=== PATIENT | male | born 1975 | race African-American/Black ===

== ENCOUNTER 2017-04-02 16:05 | Emergency (ER) | payer MEDICAID ==
[~2017-04-02] VITALS: Ht 185.4 cm; Wt 91.4 kg
[2017-04-02 16:12] VITALS: BP 152/84
[2017-04-02] MEDS ORDERED: AZITHROMYCIN 500 MG TABLET PO ONE (16:30)
[2017-04-02] MEDS ORDERED: metroNIDAZOLE 500 MG TABLET PO ONE (16:30)
[2017-04-02] MEDS ORDERED: CEFTRIAXONE 250 MG IM ONE (16:30)
[2017-04-02] MEDS ORDERED: AZITHROMYCIN 500 MG TABLET ONE (16:42)
[2017-04-02] MEDS ORDERED: CEFTRIAXONE 250 MG ONE (16:42)
[2017-04-02] MEDS ORDERED: LIDOCAINE-MPF 2% ,5ML ONE (16:42)
[2017-04-02] MEDS ORDERED: metroNIDAZOLE 500 MG TABLET ONE (16:46)
== END 2017-04-02 17:22 | disposition home or self-care (01) ==
LOC: ED 17:17
DX: Z20.2 Contact with and (suspected) exposure to infections with a predominantly sexual mode of transmission (principal)
CPT/HCPCS: 87491; 87591; 96372; 99284; J0696

== ENCOUNTER 2018-05-25 18:30 | Emergency (ER) | payer MEDICAID ==
[~2018-05-25] VITALS: Ht 182.9 cm; Wt 85.9 kg
[2018-05-25 18:38] VITALS: BP 143/93
== END 2018-05-25 19:34 | disposition home or self-care (01) ==
LOC: ED 19:28
DX: L03.116 Cellulitis of left lower limb (principal)
CPT/HCPCS: 99283

== ENCOUNTER 2020-06-11 17:42 | Emergency (ER) | payer MEDICAID ==
[~2020-06-11] VITALS: Ht 182.9 cm; Wt 82.5 kg
[2020-06-11] MEDS ORDERED: SODIUM CHLORIDE FLUSH 10ML SYR IVF ONE (19:00)
[2020-06-11 19:01] LABS: MICROSCOPIC AUTO
[2020-06-11 19:09] LABS: BASOPHILS % (AUTO) 0 % (0-1); EOSINOPHILS # (AUTO) 0.03 x10^3/uL (0-0.4); EOSINOPHILS % (AUTO) 1 % (1-7); LYMPHOCYTES % (AUTO) 11 % (22-44); MD NO; MEAN CORPUSCULAR HEMOGLOBIN 31.8 pg (27.5-34.5); MEAN CORPUSCULAR HGB CONC 33.8 g/dL (33.2-36.2); MEAN CORPUSCULAR VOLUME 94.1 fL (81-97); MEAN PLATELET VOLUME 7.6 fL (7.4-10.4); MONOCYTES # (AUTO) 0.58 x10^3/uL (0.2-0.8); MONOCYTES % (AUTO) 8 % (2-9); NEUTROPHILS # (AUTO) 6.16 x10^3/uL (1.8-6.8); NEUTROPHILS % (AUTO) 81 % (42-75); PLATELET COUNT 287 x10^3/uL (130-400); RED BLOOD COUNT 5.45 x10^6/uL (4.38-5.82); RED CELL DISTRIBUTION WIDTH 14.1 % (9.4-14.8)
[2020-06-11 19:20] LABS: ALBUMIN 3.8 g/dL (3.4-5.0); ANION GAP 4 mmol/L (5-15); CALCIUM 9.1 mg/dL (8.5-10.1); CHLORIDE 108 mmol/L (98-107)
[2020-06-11 19:24] LABS: ALANINE AMINOTRANSFERASE 34 U/L (12-78); ALKALINE PHOSPHATASE 74 U/L (45-117); BILIRUBIN,TOTAL 2.1 mg/dL (0.2-1.0); TOTAL PROTEIN 8.1 g/dL (6.4-8.2)
--- NOTE | 2020-06-11 19:41 | NUR ---
PT TO ROOM FROM LOBBY
--- NOTE | 2020-06-11 20:35 | NUR ---
Pt provided with water, juice, crackers for po challenge. Pt states he is "scared to eat, tried to eat an orange earlier but was too scared." Pt notes he has had multiple episodes of "watery diarrhea and feels it's coming again"
[2020-06-11] MEDS ORDERED: ACETAMINOPHEN 325 MG TABLET ONE (20:49)
[2020-06-11] MEDS ORDERED: ACETAMINOPHEN 325 MG TABLET PO ONE (21:00)
--- NOTE | 2020-06-11 21:00 | NUR ---
pt tolerated crackers and juice without vomitting, pt states he had pain across umbilicus and provider was informed, pt medicated with tylenol per eMAR
[2020-06-11 21:31] VITALS: BP 132/78
== END 2020-06-11 22:46 | disposition home or self-care (01) ==
LOC: ED 21:17
DX: K29.20 Alcoholic gastritis without bleeding (principal); F10.129 Alcohol abuse with intoxication, unspecified; F17.200 Nicotine dependence, unspecified, uncomplicated; Y90.9 Presence of alcohol in blood, level not specified
CPT/HCPCS: 36415; 80053; 81001; 83690; 85025; 87086; 99283

== ENCOUNTER 2020-07-02 19:36 | Emergency (ER) | payer MEDICAID ==
[~2020-07-02] VITALS: Ht 182.9 cm; Wt 81.0 kg
[2020-07-02 19:42] VITALS: BP 138/97
--- NOTE | 2020-07-02 19:56 | NUR ---
PT TO ED WITH PAINFUL URINATION X3 DAYS WITH DISCHARGE. PT REPORTS UNPROTECTED SEX X7 DAYS AGO. PT DENIES ANY OTHER MEDICAL C/O AT THIS TIME. PT ATTEMPTING UA.
[2020-07-02] MEDS ORDERED: AZITHROMYCIN 500 MG TABLET PO ONE (20:00)
[2020-07-02] MEDS ORDERED: CEFTRIAXONE 250 MG IM ONE (20:00)
[2020-07-02] MEDS ORDERED: CEFTRIAXONE 250 MG ONE (20:13)
[2020-07-02] MEDS ORDERED: AZITHROMYCIN 500 MG TABLET ONE (20:13)
== END 2020-07-02 20:36 | disposition home or self-care (01) ==
LOC: ED 20:00
DX: A56.01 Chlamydial cystitis and urethritis (principal); A54.9 Gonococcal infection, unspecified; F17.200 Nicotine dependence, unspecified, uncomplicated
CPT/HCPCS: 87491; 87591; 96372; 99283; J0696

== ENCOUNTER 2020-09-19 13:56 | Emergency (ER) | payer MEDICAID ==
[~2020-09-19] VITALS: Ht 182.9 cm; Wt 85.4 kg
[2020-09-19 14:10] VITALS: BP 135/91
[2020-09-19] MEDS ORDERED: FLUORESCEIN OPHTHALMIC 1 MG STRIP EACHEYE ONE (14:30)
[2020-09-19] MEDS ORDERED: PROPARACAINE OPHTH 0.5%, 15ML EACHEYE ONE (14:30)
[2020-09-19] MEDS ORDERED: FLUORESCEIN OPHTHALMIC 1 MG STRIP ONE (16:05)
[2020-09-19] MEDS ORDERED: PROPARACAINE OPHTH 0.5%, 15ML ONE (16:07)
== END 2020-09-19 17:45 | disposition home or self-care (01) ==
LOC: ED 17:35
DX: H20.012 Primary iridocyclitis, left eye (principal); F17.200 Nicotine dependence, unspecified, uncomplicated
CPT/HCPCS: 99283

== ENCOUNTER 2021-06-20 15:36 | Emergency (ER) | payer MEDICAID ==
[~2021-06-20] VITALS: Ht 182.9 cm; Wt 82.5 kg
--- NOTE | 2021-06-20 17:45 | NUR ---
gi tech note: Pt to room from lobby via wheelchair.
--- NOTE | 2021-06-20 17:48 | NUR ---
Pt was placed in room
[2021-06-20 18:42] VITALS: BP 132/94
--- NOTE | 2021-06-20 18:45 | NUR ---
Report to JOSE Moore
--- NOTE | 2021-06-20 19:00 | NUR ---
RECEIVED REPORT FROM VILMA GARCIA. TRANSFER OF CARE.
--- NOTE | 2021-06-20 19:01 | NUR ---
RECEIVED REPORT FROM VILMA GARCIA. TRANSFER OF CARE.
== END 2021-06-20 19:03 | disposition home or self-care (01) ==
LOC: ED 18:57
DX: S02.40FA Zygomatic fracture, left side, initial encounter for closed fracture (principal); S09.90XA Unspecified injury of head, initial encounter; F17.210 Nicotine dependence, cigarettes, uncomplicated; X58.XXXA Exposure to other specified factors, initial encounter; Y93.89 Activity, other specified; Y92.89 Other specified places as the place of occurrence of the external cause; Y99.8 Other external cause status
CPT/HCPCS: 70450; 70486; 72125; 99285